=== PATIENT | female | born 1975 | race African-American/Black ===

== ENCOUNTER 2019-07-25 09:43 | Emergency (ER) | payer MEDICAID, OTHER ==
[~2019-07-25] VITALS: Ht 162.6 cm; Wt 81.0 kg
[2019-07-25] MEDS ORDERED: IPRATROPIUM BROMIDE (0.02%) 0.5MG/2.5ML NEB HHN STA (10:53)
[2019-07-25] MEDS ORDERED: ALBUTEROL (0.083%) 2.5MG/3ML NEB HHN STA (10:53)
[2019-07-25] MEDS ORDERED: PREDNISONE 20MG TABLET PO STA (10:53)
[2019-07-25 12:14] VITALS: BP 115/82
== END 2019-07-25 12:15 | disposition home or self-care (01) ==
LOC: ER 09:43
DX: H66.91 Otitis media, unspecified, right ear (principal); J45.901 Unspecified asthma with (acute) exacerbation; R03.0 Elevated blood-pressure reading, without diagnosis of hypertension
CPT/HCPCS: 71045; 94640; 99283; J7512; J7611; Z7610

== ENCOUNTER 2020-01-16 13:43 | Emergency (ER) | payer SELFPAY ==
[~2020-01-16] VITALS: Ht 172.7 cm; Wt 84.0 kg
[2020-01-16] MEDS ORDERED: ONDANSETRON HCL 4MG/2ML INJ IV STA (15:26)
[2020-01-16] MEDS ORDERED: SODIUM CHLORIDE 0.9% 1,000 ML IV ONE (15:26)
[2020-01-16] MEDS ORDERED: KETOROLAC 30MG/ML VIAL IV STA (15:26)
[2020-01-16 16:05] LABS: BASOPHILS % 0.9 % (0.0-2.0); EOSINOPHILS % 5.4 % (0.0-5.0); HEMATOCRIT. 42.5 % (36.0-48.0); HEMOGLOBIN. 13.9 g/dL (12.0-16.0); LYMPHOCYTES % 28.4 % (20.0-50.0); MEAN CORPUSCULAR HEMOGLOBIN 26.9 pg (28.0-32.0); MEAN CORPUSCULAR VOLUME 82.1 fL (81.0-99.0); MONOCYTES % 7.2 % (2.0-8.0); NEUTROPHILS % 58.1 % (40.0-76.0); PLATELET 236 x1000/uL (130-400); RED BLOOD CELL COUNT 5.18 mill/uL (4.2-5.4); RED CELL DISTRIBUTION WIDTH 16.5 % (11.6-14.6)
[2020-01-16 16:07] LABS: CLARITY URINE CLEAR (CLEAR); COLOR URINE YELLOW (YELLOW); KETONES URINE NEGATIVE (NEGATIVE); LEUKOCYTE ESTERASE URINE TRACE (NEGATIVE); NITRITE URINE NEGATIVE (NEGATIVE); OCCULT BLOOD URINE NEGATIVE (NEGATIVE); PROTEIN URINE NEGATIVE (NEGATIVE); SPECIFIC GRAVITY URINE 1.023 (1.005-1.030)
[2020-01-16 16:14] LABS: PROTHROMBIN TIME 11.3 sec (9.6-11.0)
[2020-01-16 16:15] LABS: CHLORIDE 108 mEq/L (98-107)
[2020-01-16 16:16] LABS: HCG SCREEN NEGATIVE
[2020-01-16 19:13] VITALS: BP 100/89
== END 2020-01-16 19:13 | disposition home or self-care (01) ==
LOC: ER 13:43
DX: N39.0 Urinary tract infection, site not specified (principal); N12 Tubulo-interstitial nephritis, not specified as acute or chronic; D25.9 Leiomyoma of uterus, unspecified; Z88.2 Allergy status to sulfonamides
CPT/HCPCS: 36415; 80053; 81003; 83690; 84703; 85025; 85610; 96374; 96375; 99285; J1885; J2405; J7030